=== PATIENT | female | born 1980 | race Caucasian/White ===

== ENCOUNTER 2018-05-05 05:15 | Observation (INO) | payer OTHER ==
[2018-05-02 15:20] LABS: BASOPHILS # (AUTO) 0.1 X10'3 (0-0.2); BASOPHILS % (AUTO) 1.2 % (0-1); EOSINOPHILS # (AUTO) 0.1 X10'3 (0-0.9); EOSINOPHILS % (AUTO) 2.2 % (0-6); LYMPHOCYTES # (AUTO) 2.3 X10'3 (1.1-4.8); LYMPHOCYTES % (AUTO) 36.3 % (21-51); MEAN CORPUSCULAR HEMOGLOBIN 32.2 PG (27.0-31.0); MEAN CORPUSCULAR HGB CONC 34.1 % (33.0-36.5); MEAN CORPUSCULAR VOLUME 94.4 FL (78-98); MEAN PLATELET VOLUME 8.9 FL (7.4-10.4); MONOCYTES # (AUTO) 0.5 X10'3 (0-0.9); MONOCYTES % (AUTO) 7.6 % (2-12); NEUTROPHILS # (AUTO) 3.3 X10'3 (1.8-7.7); NEUTROPHILS % (AUTO) 52.7 % (42-75); PRE OP HEMATOCRIT 35.8 % (35.0-45.0); PRE OP HEMOGLOBIN 12.2 g/dL (12.0-16.0); PRE OP PLATELET COUNT 280 X10'3 (140-440); RED BLOOD COUNT 3.79 X10'6 (4.20-5.60); RED CELL DISTRIBUTION WIDTH 12.8 % (11.5-14.5)
[2018-05-02 15:36] LABS: ALBUMIN 3.6 G/DL (3.4-5.0); ALBUMIN/GLOBULIN RATIO 0.9 (1.1-1.5); ALKALINE PHOSPHATASE 77 IU/L (46-116); BLOOD UREA NITROGEN 14 MG/DL (7-18); CALCIUM 9.1 MG/DL (8.5-10.1); CHLORIDE 104 MMOL/L (99-107); PRE OP ALT 17 U/L (30-65); PRE OP ANION GAP 6 (8-16); PRE OP AST 16 U/L (10-37); PRE OP BILIRUB, TOTAL 0.3 MG/DL (0.0-1.0); PRE OP GLUCOSE 83 MG/DL (70-104); PRE OP POTASSIUM 4.1 MMOL/L (3.4-5.1); PRE OP SODIUM 139 MMOL/L (135-145); TOTAL CARBON DIOXIDE 28.9 MMOL/L (24-32); TOTAL PROTEIN 7.4 G/DL (6.4-8.2); eGFR > 90 ML/MIN
[2018-05-05] VITALS (19 sets, daily range): BP systolic 100–127; BP diastolic 60–85
[~2018-05-05] VITALS: Ht 170.2 cm; Wt 68.6 kg
[~2018-05-05 05:15] MED LIST: IBUP-24 PO
[2018-05-05] MEDS ORDERED: gentamicin inj 350 MG in normal saline 100ml IV soln 91.25 ML IV ONE (05:30)
[2018-05-05] MEDS ORDERED: famotidine 20mg tablet PO ONE (05:30)
[2018-05-05] MEDS ORDERED: clindamycin-Cleocin 900mg/D5W 50 ML IV ONE (05:30)
[2018-05-05] MEDS ORDERED: LIDOcaine 1% (10mg/ml) 2ml vial ONE (05:39)
[2018-05-05] MEDS: ringers solution, lacted 1,000 ML IV SCH ×5 (05:49→17:42)
[2018-05-05 06:33] LABS: HCG SERUM QL NEGATIVE
[2018-05-05] MEDS ORDERED: epiNEPHrine 1 mg/ml inj ONE (06:56)
[2018-05-05] MEDS ORDERED: LIDOcaine 1% 30ml preserv. free vial ONE (06:56)
[2018-05-05] MEDS ORDERED: ROPIVAcaine 0.5% (5mg/ml) 30ml vial ONE (06:57)
[2018-05-05] MEDS ORDERED: midazolam 2 mg/2 ml injection ONE (07:19)
[2018-05-05] MEDS ORDERED: propofol inj 20 ML IV ONE (07:19)
[2018-05-05] MEDS ORDERED: dexamethasone sod phosphate 4mg/ml inj. ONE (07:19)
[2018-05-05] MEDS ORDERED: rocuronium 10mg/ml inj IV ONE (07:19)
[2018-05-05] MEDS ORDERED: fentaNYL /PF 50mcg/ml 5ml ampule ONE (07:19)
[2018-05-05] MEDS ORDERED: ringers solution, lacted 1,000 ML IV SCH ×2 (07:28→09:58)
[2018-05-05] MEDS ORDERED: proCHLORperazine 10 MG/2 ml inj IV PRN (07:30)
[2018-05-05] MEDS ORDERED: ondansetron/PF 4mg/2ml inj IV PRN (07:30)
[2018-05-05] MEDS ORDERED: morphine 4 MG/ML inj SYRINge IV PRN ×2 (07:30)
[2018-05-05] MEDS ORDERED: meperidine/PF 25mg/ml syringe IV PRN ×3 (07:30)
[2018-05-05] MEDS ORDERED: sevoflurane 250ml liquid IH ONE (07:46)
[2018-05-05] MEDS ORDERED: fluoroscein sod 10% (100mg/ml) 5ml vial ONE (09:30)
[2018-05-05] MEDS ORDERED: ondansetron/PF 4mg/2ml inj ONE (09:41)
[2018-05-05] MEDS ORDERED: glycopyrrolate 0.2mg/ml inj ONE (09:42)
[2018-05-05] MEDS ORDERED: neostigmine methylsulfate 1 MG/ML 10ml vial ONE (09:42)
[2018-05-05] MEDS ORDERED: metoclopramide 5 mg/ml inj IV PRN (10:00)
[2018-05-05] MEDS ORDERED: naloxone 0.4 mg/ml inj IV PRN (10:00)
[2018-05-05] MEDS ORDERED: LORazepam 2 mg/ml vial IV PRN (10:00)
[2018-05-05] MEDS ORDERED: normal saline 500ml IV soln 500 ML IV PRN (10:00)
[2018-05-05] MEDS ORDERED: diphenhydrAMINE 50 mg/ml inj IV PRN (10:00)
[2018-05-05] MEDS ORDERED: mag hydrox/Alum hydrox/simeth 30ml oral suspension PO PRN (10:00)
[2018-05-05] MEDS ORDERED: CADD PCA waste documentation MC PRN (10:00)
[2018-05-05] MEDS ORDERED: ketorolac trometh. 30mg/ml inj. IV PRN (10:00)
[2018-05-05] MEDS ORDERED: oxyCODONE/APAP 5-325mg tablet PO PRN (10:05)
[2018-05-05] MEDS: morphine/NS 5 mg/ml CADD 50 ML IV SCH ×7 (11:13→23:00)
[2018-05-05] MEDS: simethicone 80mg chew tab PO SCH ×2 (13:29→19:12)
[2018-05-05] MEDS: ondansetron/PF 4mg/2ml inj IV PRN (18:29)
[2018-05-05] MEDS: docusate sod 100mg capsule PO SCH (19:12)
[2018-05-06] VITALS: BP 92/58
[2018-05-06] MEDS: morphine/NS 5 mg/ml CADD 50 ML IV SCH ×3 (01:00→05:00)
[2018-05-06 04:00] VITALS: BP 94/62
[2018-05-06 04:39] LABS: BASOPHILS % (AUTO) 0.4 % (0-1); EOSINOPHILS # (AUTO) 0.2 X10'3 (0-0.9); EOSINOPHILS % (AUTO) 1.4 % (0-6); HEMATOCRIT 36.2 % (35.0-45.0); HEMOGLOBIN 12.5 g/dl (12.0-16.0); LYMPHOCYTES # (AUTO) 1.5 X10'3 (1.1-4.8); LYMPHOCYTES % (AUTO) 13.3 % (21-51); MEAN CORPUSCULAR HEMOGLOBIN 32.5 PG (27.0-31.0); MEAN CORPUSCULAR HGB CONC 34.6 % (33.0-36.5); MEAN CORPUSCULAR VOLUME 93.9 FL (78-98); MONOCYTES # (AUTO) 1.2 X10'3 (0-0.9); MONOCYTES % (AUTO) 10.5 % (2-12); NEUTROPHILS # (AUTO) 8.4 X10'3 (1.8-7.7); NEUTROPHILS % (AUTO) 74.4 % (42-75); PLATELET COUNT 245 X10'3 (140-440); RED BLOOD COUNT 3.85 X10'6 (4.20-5.60); RED CELL DISTRIBUTION WIDTH 12.3 % (11.5-14.5); WHITE BLOOD COUNT 11.3 X10'3 (4.5-11.0)
[2018-05-06 04:47] LABS: ALBUMIN 3.2 G/DL (3.4-5.0); ANION GAP 8 (8-16); BLOOD UREA NITROGEN 9 MG/DL (7-18); BUN/CREATININE RATIO 12.5 (6.6-38.0); CALCIUM 8.3 MG/DL (8.5-10.1); CHLORIDE 104 MMOL/L (99-107); CREATININE 0.72 MG/DL (0.40-0.90); GLUCOSE 95 MG/DL (70-104); POTASSIUM 3.9 MMOL/L (3.5-5.1); SODIUM 137 MMOL/L (135-145); TOTAL CARBON DIOXIDE 24.8 MMOL/L (24-32); eGFR > 90 ML/MIN
[2018-05-06 06:51] VITALS: BP 95/59
[2018-05-06] MEDS: simethicone 80mg chew tab PO SCH ×3 (07:05→19:28)
[2018-05-06] MEDS: docusate sod 100mg capsule PO SCH ×2 (07:05→19:28)
[2018-05-06] MEDS: ondansetron/PF 4mg/2ml inj IV PRN (09:43)
[2018-05-06] MEDS: oxyCODONE/APAP 5-325mg tablet PO PRN ×2 (09:43→19:28)
[2018-05-06 11:00] VITALS: BP 95/59
== END 2018-05-06 19:45 | disposition home or self-care (01) ==
LOC: PAS 05:15 → SUR 3N 12:09
PROVIDERS: ADMIT Obstetrics & Gynecology; ATTEND Obstetrics & Gynecology
DX: N80.0 Endometriosis of uterus (principal); N72 Inflammatory disease of cervix uteri; N92.0 Excessive and frequent menstruation with regular cycle; G89.29 Other chronic pain; N73.6 Female pelvic peritoneal adhesions (postinfective)
CPT/HCPCS: 36415; 58552; 80048; 80053; 84703; 85025; 86885; 86900; 86901; 96365; 96375; 96376; A4315; C1758; G0378; J0171; J1100; J1200; J1580; J1885; J2250; J2270; J2405; J2704; J2710; J2795; J3010; J3490; J7030; J7120; A4353; A6250; A7000